=== PATIENT | female | born 1965 | race African-American/Black ===

== ENCOUNTER 2016-10-22 12:24 | Inpatient (IN) | payer OTHER ==
[~2016-10-22] VITALS: Ht 170.2 cm; Wt 100.0 kg
[~2016-10-22 12:24] MED LIST: ACET-66 PO; ALBU17AE27 IH; AMOX500C2 PO; ASPI-556 PO; CARV25 PO; FURO40 PO; GABA-531 PO; IBUP-1547 PO; LISI10TA7 PO; MULT-950 PO; SIMV20TA2 PO; SPIR25TA PO
[2016-10-22 13:42] LABS: BASOPHILS % (AUTO) 0.6 % (0.0-2.0); EOSINOPHILS % (AUTO) 0.1 % (1.0-6.0); HEMATOCRIT 37.9 % (36-46); HEMOGLOBIN 12.2 g/dL (12.0-16.0); LYMPHOCYTES # (AUTO) 1.1 K/uL (1.0-4.8); MEAN CORPUSCULAR HEMOGLOBIN 28.5 pg (26.0-34.0); MEAN CORPUSCULAR HGB CONC 32.2 G/dL (31.0-37.0); MEAN CORPUSCULAR VOLUME 89 fL (80-100); MONOCYTES # (AUTO) 0.7 K/uL (0.1-1.0); MONOCYTES % (AUTO) 18.5 % (2.0-9.0); NEUTROPHILS # (AUTO) 1.8 K/uL (1.8-7.7); NEUTROPHILS % (AUTO) 49.8 % (40.0-70.0); PLATELET COUNT (AUTO) 172 K/uL (150-450); RED BLOOD CELL COUNT(AUTO) 4.27 MIL/uL (4.00-5.20); RED CELL DISTRIBUTION WIDTH 15.4 % (11.5-14.5); WHITE BLOOD COUNT (AUTO) 3.6 K/uL (4.5-11.0)
[2016-10-22 13:56] LABS: ORIG DRAW (USER) PTCARESTAF
[2016-10-22 14:11] LABS: APPEARANCE,URINE CLEAR (CLEAR); GLUCOSE, URINE (UA) NEGATIVE (NEGATIVE); KETONES,URINE NEGATIVE (NEGATIVE); LEUKOCYTE ESTERASE ,URINE NEGATIVE (NEGATIVE); OCCULT BLOOD,URINE NEGATIVE (NEGATIVE); PROTEIN,URINE NEGATIVE (NEGATIVE)
[2016-10-22 14:13] LABS: ADD UA MICROSCOPIC NO
[2016-10-22 14:22] LABS: B-TYPE NATRIURETIC PEPTIDE 550 pg/mL (0-100)
[2016-10-22 14:33] LABS: ABG A-A DIFF O2 32.7 mmHg (10-20.0); ABG BASE EXCESS 11.2 mmol/L (-2.0-3.0); ABG HCO3 31.4 mmol/L (22.0-26.0); ABG OXYHEMOGLOBIN 92.1 % (94.0-100.0); ABG PH 7.222 (7.35-7.450); TEMPERATURE, FAHRENHEIT, BG 98.7 FAHREN (96.0-98.6)
[2016-10-22 14:34] LABS: ABG PCO2 97 mmHg (35-45); ALLEN TEST, BLOOD GAS Positive
[2016-10-22 14:54] LABS: ALANINE AMINOTRANSFERASE 63 U/L (12-78); ALBUMIN 3.3 g/dL (3.4-5.0); ANION GAP 1 mmol/L (8-16); ASPARTATE AMINOTRANSFERASE 48 U/L (15-37); BILIRUBIN,TOTAL 0.2 mg/dL (0.1-1.0); CALCIUM, TOTAL 8.4 mg/dL (8.8-10.5); CARBON DIOXIDE 40 mmol/L (22-29); CHLORIDE 96 mmol/L (98-107); CREATINE KINASE MB 1.2 ng/mL (0-5); CREATINE KINASE, TOTAL 137 U/L (26-192); CREATININE 0.72 mg/dL (0.60-1.30); GLOMERULAR FILTR. RATE CALC > 60 mL/min (>60); SODIUM SERUM 137 mmol/L (136-145); TOTAL PROTEIN, SERUM 7.3 g/dL (6.4-8.2); UREA NITROGEN, BLOOD 7 mg/dL (7-18)
[2016-10-22] MEDS ORDERED: LEVOFLOXACIN 750 MG/D5% WATER 150 ML IV ONE (15:15)
[2016-10-22] MEDS ORDERED: ALBUTEROL SULFATE 5 MG/ML 20 ML NEB SOLN [BULK] NEB ONE (15:15)
[2016-10-22] MEDS ORDERED: MethylPREDNISolone SOD SUCC 125 MG/2 ML VIAL IVP ONE (15:15)
[2016-10-22] MEDS ORDERED: FUROSEMIDE 40 MG/4 ML VIAL IVP ONE (15:15)
[2016-10-22] MEDS ORDERED: IPRATROPIUM BROMIDE 0.5 MG/2.5 ML NEB SOLUTION NEB ONE (15:15)
[2016-10-22] MEDS ORDERED: 0.9% SODIUM CHLORIDE 5 ML NEB SOLUTION NEB ONE (15:21)
[2016-10-22 15:52] LABS: THYROID STIMULATING HORMONE 0.14 uIU/mL (0.36-3.74)
[2016-10-22 16:19] LABS: INFLUENZA TYPE B NEGATIVE FOR TYPE B (NEGATIVE)
[2016-10-22] MEDS ORDERED: OSELTAMIVIR PHOSPHATE 75 MG CAPSULE PO ONE (16:30)
[2016-10-22 16:44] LABS: ABG A-A DIFF O2 35.4 mmHg (10-20.0); ABG BASE EXCESS 12.6 mmol/L (-2.0-3.0); ABG HCO3 33.2 mmol/L (22.0-26.0); ABG OXYHEMOGLOBIN 93.1 % (94.0-100.0); ABG PH 7.287 (7.35-7.450); TEMPERATURE, FAHRENHEIT, BG 98.7 FAHREN (96.0-98.6)
[2016-10-22] MEDS ORDERED: MAGNESIUM HYDROXIDE SUSPENSION 30 ML UDCUP PO PRN (16:45)
[2016-10-22] MEDS ORDERED: OxyCODONE HCL/ACETAMINOPHEN 5-325 MG TABLET PO PRN (16:45)
[2016-10-22] MEDS ORDERED: ACETAMINOPHEN 325 MG TABLET PO PRN (16:45)
[2016-10-22] MEDS ORDERED: DEXTROSE 50%-WATER 25 GM/50 ML SYRINGE IVP PRN ×4 (16:45)
[2016-10-22 16:46] LABS: ABG PCO2 84 mmHg (35-45); IPAP, BG 18 cm H2O
[2016-10-22] MEDS: AZITHROMYCIN 500 MG/NS 250 ML IV SCH (16:55)
[2016-10-22] MEDS: ASPIRIN 81 MG CHEWABLE TABLET PO SCH (16:56)
[2016-10-22] MEDS: MethylPREDNISolone SOD SUCC 125 MG/2 ML VIAL IVP SCH ×2 (17:21→23:17)
[2016-10-22] MEDS: IPRATROPIUM BROMIDE 0.5 MG/2.5 ML NEB SOLUTION NEB SCH ×2 (19:10→22:45)
[2016-10-22] MEDS: ALBUTEROL SULFATE 2.5 MG/0.5 ML NEB SOLUTION NEB SCH ×2 (19:10→22:45)
[2016-10-22] MEDS: OSELTAMIVIR PHOSPHATE 75 MG CAPSULE PO SCH (20:19)
[2016-10-22] MEDS: DOCUSATE SODIUM 100 MG CAPSULE PO SCH (20:19)
[2016-10-22] MEDS: HEPARIN SODIUM,PORCINE 5,000 UNITS/ML VIAL SQ SCH (23:19)
[2016-10-23 00:32] LABS: GLUCOSE,POINT OF CARE 226 MG/DL (70-110)
[2016-10-23] MEDS: INSULIN ASPART 100 UNITS/ML SQ PRN ×3 (00:33→13:14)
[2016-10-23] MEDS: IPRATROPIUM BROMIDE 0.5 MG/2.5 ML NEB SOLUTION NEB SCH ×6 (02:46→22:54)
[2016-10-23] MEDS: ALBUTEROL SULFATE 2.5 MG/0.5 ML NEB SOLUTION NEB SCH ×6 (02:46→22:54)
[2016-10-23] MEDS: MethylPREDNISolone SOD SUCC 125 MG/2 ML VIAL IVP SCH ×3 (05:42→18:33)
[2016-10-23 07:01] LABS: GLUCOSE,POINT OF CARE 141 MG/DL (70-110)
[2016-10-23 07:47] LABS: EOSINOPHILS % (AUTO) 0 % (1.0-6.0); HEMATOCRIT 40.3 % (36-46); HEMOGLOBIN 12.9 g/dL (12.0-16.0); LYMPHOCYTES # (AUTO) 0.7 K/uL (1.0-4.8); LYMPHOCYTES % (AUTO) 10.6 % (22.0-44.0); MEAN CORPUSCULAR HEMOGLOBIN 28.8 pg (26.0-34.0); MEAN CORPUSCULAR VOLUME 90 fL (80-100); MONOCYTES # (AUTO) 0.3 K/uL (0.1-1.0); NEUTROPHILS # (AUTO) 5.7 K/uL (1.8-7.7); PLATELET COUNT (AUTO) 184 K/uL (150-450); RED BLOOD CELL COUNT(AUTO) 4.46 MIL/uL (4.00-5.20); RED CELL DISTRIBUTION WIDTH 14.9 % (11.5-14.5); WHITE BLOOD COUNT (AUTO) 6.7 K/uL (4.5-11.0)
[2016-10-23 07:55] LABS: NEUTROPHILS % (AUTO) 85.4 % (40.0-70.0)
[2016-10-23 08:03] LABS: ALANINE AMINOTRANSFERASE 56 U/L (12-78); ALBUMIN 2.9 g/dL (3.4-5.0); ANION GAP 2 mmol/L (8-16); ASPARTATE AMINOTRANSFERASE 29 U/L (15-37); BILIRUBIN,TOTAL 0.1 mg/dL (0.1-1.0); CALCIUM, TOTAL 8.6 mg/dL (8.8-10.5); CARBON DIOXIDE 40 mmol/L (22-29); CHLORIDE 97 mmol/L (98-107); CREATININE 0.63 mg/dL (0.60-1.30); GLOMERULAR FILTR. RATE CALC > 60 mL/min (>60); POTASSIUM 4.4 mmol/L (3.5-5.1); SODIUM SERUM 139 mmol/L (136-145); TOTAL PROTEIN, SERUM 7.1 g/dL (6.4-8.2); UREA NITROGEN, BLOOD 8 mg/dL (7-18)
[2016-10-23] MEDS: HEPARIN SODIUM,PORCINE 5,000 UNITS/ML VIAL SQ SCH ×2 (08:10→17:54)
[2016-10-23 08:36] LABS: RBC MORPHOLOGY COMMENT NORMAL RBC MORPH
[2016-10-23 08:49] LABS: ABG A-A DIFF O2 412.8 mmHg (10-20.0); ABG BASE EXCESS 15.5 mmol/L (-2.0-3.0); ABG HCO3 35.6 mmol/L (22.0-26.0); ABG OXYHEMOGLOBIN 93.5 % (94.0-100.0); ABG PH 7.322 (7.35-7.450); TEMPERATURE, FAHRENHEIT, BG 97.5 FAHREN (96.0-98.6)
[2016-10-23 08:52] LABS: ABG PCO2 82 mmHg (35-45); ALLEN TEST, BLOOD GAS Positive
[2016-10-23] MEDS: DOCUSATE SODIUM 100 MG CAPSULE PO SCH ×2 (09:14→22:33)
[2016-10-23] MEDS: ASPIRIN 81 MG CHEWABLE TABLET PO SCH (09:15)
[2016-10-23] MEDS: PANTOPRAZOLE SODIUM 40 MG DR TABLET PO SCH (09:15)
[2016-10-23] MEDS: OSELTAMIVIR PHOSPHATE 75 MG CAPSULE PO SCH ×2 (09:15→22:33)
[2016-10-23 12:56] LABS: GLUCOSE,POINT OF CARE 246 MG/DL (70-110)
[2016-10-23] MEDS: AZITHROMYCIN 500 MG/NS 250 ML IV SCH (17:55)
[2016-10-23 20:07] LABS: ABG A-A DIFF O2 216.2 mmHg (10-20.0); ABG HCO3 33.9 mmol/L (22.0-26.0); ABG OXYHEMOGLOBIN 92.3 % (94.0-100.0); ABG PCO2 67 mmHg (35-45); ABG PH 7.375 (7.35-7.450); IPAP, BG 18 cm H2O; TEMPERATURE, FAHRENHEIT, BG 97.8 FAHREN (96.0-98.6)
[2016-10-23] MEDS: BUDESONIDE 0.5 MG/2 ML NEB SOLUTION NEB SCH (20:20)
[2016-10-23 20:46] LABS: GLUCOSE,POINT OF CARE 207 MG/DL (70-110)
[2016-10-23 21:29] VITALS: BP 121/65
[2016-10-24] VITALS (7 sets, daily range): BP systolic 120–162; BP diastolic 69–94
[2016-10-24] MEDS: HEPARIN SODIUM,PORCINE 5,000 UNITS/ML VIAL SQ SCH ×3 (00:08→17:16)
[2016-10-24] MEDS: MethylPREDNISolone SOD SUCC 125 MG/2 ML VIAL IVP SCH ×4 (00:08→17:16)
[2016-10-24] MEDS: ALBUTEROL SULFATE 2.5 MG/0.5 ML NEB SOLUTION NEB SCH ×6 (02:45→22:39)
[2016-10-24] MEDS: IPRATROPIUM BROMIDE 0.5 MG/2.5 ML NEB SOLUTION NEB SCH ×6 (02:45→22:39)
[2016-10-24] MEDS: INSULIN ASPART 100 UNITS/ML SQ PRN ×4 (06:06→21:35)
[2016-10-24 07:14] LABS: EOSINOPHILS % (AUTO) 0 % (1.0-6.0); HEMATOCRIT 40.7 % (36-46); HEMOGLOBIN 12.8 g/dL (12.0-16.0); LYMPHOCYTES % (AUTO) 7.1 % (22.0-44.0); MEAN CORPUSCULAR HEMOGLOBIN 28.2 pg (26.0-34.0); MEAN CORPUSCULAR HGB CONC 31.3 G/dL (31.0-37.0); MEAN CORPUSCULAR VOLUME 90 fL (80-100); MONOCYTES # (AUTO) 0.8 K/uL (0.1-1.0); MONOCYTES % (AUTO) 5.3 % (2.0-9.0); NEUTROPHILS # (AUTO) 12.7 K/uL (1.8-7.7); PLATELET COUNT (AUTO) 218 K/uL (150-450); RED BLOOD CELL COUNT(AUTO) 4.51 MIL/uL (4.00-5.20); RED CELL DISTRIBUTION WIDTH 15.4 % (11.5-14.5); WHITE BLOOD COUNT (AUTO) 14.5 K/uL (4.5-11.0)
[2016-10-24] MEDS: BUDESONIDE 0.5 MG/2 ML NEB SOLUTION NEB SCH ×2 (07:15→19:23)
[2016-10-24 07:16] LABS: NEUTROPHILS % (AUTO) 87.6 % (40.0-70.0)
[2016-10-24 07:17] LABS: RBC MORPHOLOGY COMMENT NORMAL RBC MORPH
[2016-10-24 07:35] LABS: B-TYPE NATRIURETIC PEPTIDE 307 pg/mL (0-100)
[2016-10-24 07:37] LABS: ALANINE AMINOTRANSFERASE 44 U/L (12-78); ALBUMIN 2.7 g/dL (3.4-5.0); ANION GAP 2 mmol/L (8-16); ASPARTATE AMINOTRANSFERASE 20 U/L (15-37); BILIRUBIN,TOTAL 0.1 mg/dL (0.1-1.0); CALCIUM, TOTAL 8.7 mg/dL (8.8-10.5); CARBON DIOXIDE 38 mmol/L (22-29); CHLORIDE 99 mmol/L (98-107); CREATININE 0.66 mg/dL (0.60-1.30); GLOMERULAR FILTR. RATE CALC > 60 mL/min (>60); PHOSPHORUS 1.9 mg/dL (2.5-4.9); POTASSIUM 4.4 mmol/L (3.5-5.1); SODIUM SERUM 139 mmol/L (136-145); TOTAL PROTEIN, SERUM 6.8 g/dL (6.4-8.2); UREA NITROGEN, BLOOD 14 mg/dL (7-18)
[2016-10-24] MEDS: ASPIRIN 81 MG CHEWABLE TABLET PO SCH (09:07)
[2016-10-24] MEDS: OSELTAMIVIR PHOSPHATE 75 MG CAPSULE PO SCH ×2 (09:07→21:27)
[2016-10-24] MEDS: PANTOPRAZOLE SODIUM 40 MG DR TABLET PO SCH (09:07)
[2016-10-24] MEDS: DOCUSATE SODIUM 100 MG CAPSULE PO SCH ×2 (09:07→21:00)
[2016-10-24 11:12] LABS: ABG A-A DIFF O2 106.8 mmHg (10-20.0); ABG BASE EXCESS 13.1 mmol/L (-2.0-3.0); ABG PCO2 62 mmHg (35-45); ABG PH 7.405 (7.35-7.450); ALLEN TEST, BLOOD GAS Positive; TEMPERATURE, FAHRENHEIT, BG 97.8 FAHREN (96.0-98.6)
[2016-10-24 13:56] LABS: GLUCOSE COMMENT 1 Received Meds; GLUCOSE,POINT OF CARE 293 MG/DL (70-110)
[2016-10-24] MEDS ORDERED: SODIUM CHLORIDE 0.9% 500 ML IV ONE (17:07)
[2016-10-24] MEDS: AZITHROMYCIN 500 MG/NS 250 ML IV SCH (17:16)
[2016-10-25] MEDS: HEPARIN SODIUM,PORCINE 5,000 UNITS/ML VIAL SQ SCH ×2 (00:26→09:06)
[2016-10-25] MEDS: MethylPREDNISolone SOD SUCC 125 MG/2 ML VIAL IVP SCH ×2 (00:26→05:55)
[2016-10-25 04:49] VITALS: BP_SYST 145; BP_SYST 151; BP_DIAS 106; BP_DIAS 93
[2016-10-25] MEDS: IPRATROPIUM BROMIDE 0.5 MG/2.5 ML NEB SOLUTION NEB SCH ×4 (05:05→15:00)
[2016-10-25] MEDS: ALBUTEROL SULFATE 2.5 MG/0.5 ML NEB SOLUTION NEB SCH ×4 (05:06→15:00)
[2016-10-25] MEDS: INSULIN ASPART 100 UNITS/ML SQ PRN ×2 (05:56→12:34)
[2016-10-25 07:24] VITALS: BP 157/99
[2016-10-25] MEDS ORDERED: LISINOPRIL 10 MG TABLET PO SCH (09:00)
[2016-10-25] MEDS: DOCUSATE SODIUM 100 MG CAPSULE PO SCH (09:00)
[2016-10-25] MEDS ORDERED: FUROSEMIDE 40 MG TABLET PO SCH (09:00)
[2016-10-25] MEDS: ASPIRIN 81 MG CHEWABLE TABLET PO SCH (09:05)
[2016-10-25] MEDS: PANTOPRAZOLE SODIUM 40 MG DR TABLET PO SCH (09:05)
[2016-10-25] MEDS: OSELTAMIVIR PHOSPHATE 75 MG CAPSULE PO SCH (09:06)
[2016-10-25] MEDS: BUDESONIDE 0.5 MG/2 ML NEB SOLUTION NEB SCH (09:19)
[2016-10-25] MEDS ORDERED: PredniSONE 10 MG TABLET PO SCH (11:30)
[2016-10-25] MEDS ORDERED: PRED20 PO (11:52)
[2016-10-25] MEDS ORDERED: OSEL75 PO (11:56)
[2016-10-25 11:59] VITALS: BP 157/91
[2016-10-25 20:42] LABS: GLUCOSE COMMENT 1 Received Meds; GLUCOSE,POINT OF CARE 188 MG/DL (70-110)
[2016-10-25 20:43] LABS: GLUCOSE COMMENT 1 Received Meds; GLUCOSE,POINT OF CARE 167 MG/DL (70-110)
[2016-10-25 20:43] LABS: GLUCOSE COMMENT 1 Received Meds; GLUCOSE,POINT OF CARE 313 MG/DL (70-110)
[2016-10-26 20:11] LABS: GLUCOSE COMMENT 1 Received Meds; GLUCOSE,POINT OF CARE 181 MG/DL (70-110)
[2016-10-26 20:11] LABS: GLUCOSE,POINT OF CARE 223 MG/DL (70-110)
== END 2016-10-25 16:53 | disposition home or self-care (01) | DRG 140 ==
LOC: EMS 12:26 → ICU 10-23 18:57 → 5N 10-23 21:19
PROVIDERS: ADMIT Internal Medicine; ATTEND Internal Medicine
PROC: 5A09457 Assistance with Respiratory Ventilation, 24-96 Consecutive Hours, Continuous Positive Airway Pressure (ICD-10-PCS; principal; 2016-10-23)
DX: J44.1 Chronic obstructive pulmonary disease with (acute) exacerbation (principal); J96.01 Acute respiratory failure with hypoxia; I50.43 Acute on chronic combined systolic (congestive) and diastolic (congestive) heart failure; J96.02 Acute respiratory failure with hypercapnia; E44.0 Moderate protein-calorie malnutrition; I11.0 Hypertensive heart disease with heart failure; J09.X2 Influenza due to identified novel influenza A virus with other respiratory manifestations; E66.2 Morbid (severe) obesity with alveolar hypoventilation; I42.8 Other cardiomyopathies; Z99.81 Dependence on supplemental oxygen; F15.10 Other stimulant abuse, uncomplicated; F17.210 Nicotine dependence, cigarettes, uncomplicated; J45.909 Unspecified asthma, uncomplicated; E11.9 Type 2 diabetes mellitus without complications; Z79.899 Other long term (current) drug therapy; Z79.82 Long term (current) use of aspirin; Z91.19 Patient's noncompliance with other medical treatment and regimen; Z95.810 Presence of automatic (implantable) cardiac defibrillator; Z98.51 Tubal ligation status; Z71.51 Drug abuse counseling and surveillance of drug abuser; Z72.89 Other problems related to lifestyle; Z68.34 Body mass index [BMI] 34.0-34.9, adult
CPT/HCPCS: 82805; 82962; 83735; 84100; 84443; 87040; 87804; 93005; 93306; 94640; 94644; 94660; 96365; 96375; 99291; J0456; J1644; J1815; J1940; J1956; J2930; J7040

== ENCOUNTER 2017-11-07 23:28 | Inpatient (IN) | payer OTHER ==
[~2017-11-07] VITALS: Ht 170.2 cm; Wt 97.8 kg
[~2017-11-07 23:28] MED LIST changes: -AMOX500C2 PO; -IBUP-1547 PO; +OSEL75 PO; +PRED20 PO
[2017-11-08] MEDS ORDERED: ASPIRIN 81 MG CHEWABLE TABLET PO ONE
[2017-11-08] MEDS ORDERED: IBUPROFEN 800 MG TABLET PO ONE
[2017-11-08 00:15] LABS: BASOPHILS % (AUTO) 0.8 % (0.0-2.0); EOSINOPHILS % (AUTO) 1.9 % (1.0-6.0); HEMATOCRIT 37.7 % (36-46); HEMOGLOBIN 12.5 g/dL (12.0-16.0); LYMPHOCYTES # (AUTO) 2.2 K/uL (1.0-4.8); LYMPHOCYTES % (AUTO) 32.5 % (22.0-44.0); MEAN CORPUSCULAR HEMOGLOBIN 29.8 pg (26.0-34.0); MEAN CORPUSCULAR HGB CONC 33.2 G/dL (31.0-37.0); MEAN CORPUSCULAR VOLUME 90 fL (80-100); MONOCYTES # (AUTO) 0.6 K/uL (0.1-1.0); MONOCYTES % (AUTO) 8.5 % (2.0-9.0); NEUTROPHILS # (AUTO) 3.9 K/uL (1.8-7.7); NEUTROPHILS % (AUTO) 56.3 % (40.0-70.0); PLATELET COUNT (AUTO) 220 K/uL (150-450); RED CELL DISTRIBUTION WIDTH 15.2 % (11.5-14.5)
[2017-11-08 00:25] LABS: ANION GAP 5 mmol/L (8-16); CARBON DIOXIDE 33 mmol/L (22-29); CHLORIDE 104 mmol/L (98-107); CREATININE 0.64 mg/dL (0.60-1.30); GLOMERULAR FILTR. RATE CALC > 60 mL/min (>60); GLUCOSE,RANDOM 97 mg/dL (70-110); POTASSIUM 3.9 mmol/L (3.5-5.1); SODIUM SERUM 142 mmol/L (136-145); UREA NITROGEN, BLOOD 12 mg/dL (7-18)
[2017-11-08 00:50] LABS: ALANINE AMINOTRANSFERASE 39 U/L (12-78); ALBUMIN 3.1 g/dL (3.4-5.0); ALKALINE PHOSPHATASE 54 U/L (46-116); ASPARTATE AMINOTRANSFERASE 25 U/L (15-37); BILIRUBIN,TOTAL 0.4 mg/dL (0.1-1.0); CREATINE KINASE MB 2.5 ng/mL (0-5); CREATINE KINASE, TOTAL 86 U/L (26-192); TOTAL PROTEIN, SERUM 7.1 g/dL (6.4-8.2)
[2017-11-08 00:51] LABS: B-TYPE NATRIURETIC PEPTIDE 1080 pg/mL (0-100)
[2017-11-08] MEDS ORDERED: ACETAMINOPHEN 325 MG TABLET PO PRN (01:30)
[2017-11-08] MEDS ORDERED: ONDANSETRON HCL 4 MG/2 ML VIAL IVP PRN (01:30)
[2017-11-08] MEDS ORDERED: 0.9% SODIUM CHLORIDE 10 ML SYRINGE IVP PRN (01:30)
[2017-11-08 02:11] VITALS: BP 158/101
[2017-11-08] MEDS ORDERED: PNEUMOCOCCAL VACCINE POLYVALENT 0.5 ML VIAL [PPSV23] IM ONE (02:30)
[2017-11-08 07:47] VITALS: BP 140/99
[2017-11-08] MEDS: HEPARIN SODIUM,PORCINE 5,000 UNITS/ML VIAL SQ SCH ×3 (08:30→23:33)
[2017-11-08] MEDS ORDERED: ACETAMINOPHEN 500 MG TABLET PO PRN (08:30)
[2017-11-08] MEDS ORDERED: ALBUTEROL SULFATE HFA 90 MCG/PUFF 8 GM INHALER IH PRN (08:45)
[2017-11-08] MEDS ORDERED: FUROSEMIDE 40 MG TABLET PO SCH (09:00)
[2017-11-08] MEDS ORDERED: METOPROLOL SUCCINATE 25 MG ER TABLET PO SCH (09:00)
[2017-11-08] MEDS: ASPIRIN 81 MG EC TABLET PO SCH (09:15)
[2017-11-08] MEDS: MULTIVITAMINS, THERAPEUTIC TABLET PO SCH (09:15)
[2017-11-08] MEDS: GABAPENTIN 300 MG CAPSULE PO SCH ×3 (09:16→20:35)
[2017-11-08] MEDS: PANTOPRAZOLE SODIUM 40 MG/VIAL IVP SCH (09:16)
[2017-11-08] MEDS: LISINOPRIL 10 MG TABLET PO SCH (09:17)
[2017-11-08] MEDS: SPIRONOLACTONE 25 MG TABLET PO SCH (09:17)
[2017-11-08 09:27] LABS: AMPHET/METH SCREEN,URINE NEGATIVE (NEGATIVE); BARBITURATE SCREEN, URINE NEGATIVE (NEGATIVE); BENZODIAZEPINES SCREEN,URINE NEGATIVE (NEGATIVE); CANNABINOID SCREEN,URINE NEGATIVE (NEGATIVE); COCAINE SCREEN,URINE NEGATIVE (NEGATIVE); METHADONE SCREEN, URINE NEGATIVE (NEGATIVE); OPIATE SCREEN,URINE NEGATIVE (NEGATIVE)
[2017-11-08 09:30] LABS: PHENCYCLIDINE SCREEN,URINE NEGATIVE (NEGATIVE)
[2017-11-08 09:32] LABS: CREATINE KINASE MB 2.7 ng/mL (0-5); CREATINE KINASE, TOTAL 78 U/L (26-192)
[2017-11-08 09:34] LABS: APPEARANCE,URINE CLEAR (CLEAR); GLUCOSE, URINE (UA) NEGATIVE (NEGATIVE); KETONES,URINE NEGATIVE (NEGATIVE); LEUKOCYTE ESTERASE ,URINE NEGATIVE (NEGATIVE); NITRATE,URINE NEGATIVE (NEGATIVE); OCCULT BLOOD,URINE NEGATIVE (NEGATIVE); PROTEIN,URINE TRACE (NEGATIVE)
[2017-11-08 09:35] LABS: BILIRUBIN,URINE PRELIM. POSITIVE (NEGATIVE)
[2017-11-08 09:49] LABS: BACTERIA,URINE None Seen /HPF (None Seen); CALCIUM OXALATE CRYSTALS,UR Many /LPF (None Seen); RBC,URINE None Seen /HPF (0-2); SQUAMOUS EPITHELIAL CELL,UR Few /LPF (None Seen); WBC,URINE None Seen /HPF (0-5)
[2017-11-08 11:28] VITALS: BP 144/83
[2017-11-08] MEDS: ALBUTEROL SULFATE 2.5 MG/0.5 ML NEB SOLUTION NEB SCH ×3 (15:00→23:26)
[2017-11-08] MEDS: BUDESONIDE 0.5 MG/2 ML NEB SOLUTION NEB SCH ×2 (15:00→20:02)
[2017-11-08] MEDS: IPRATROPIUM BROMIDE 0.5 MG/2.5 ML NEB SOLUTION NEB SCH ×3 (15:00→23:26)
[2017-11-08 15:11] VITALS: BP 139/81
[2017-11-08 16:15] LABS: CREATINE KINASE MB 2.8 ng/mL (0-5); CREATINE KINASE, TOTAL 103 U/L (26-192)
[2017-11-08 19:35] VITALS: BP 112/63
[2017-11-08] MEDS: FUROSEMIDE 40 MG TABLET PO SCH (20:35)
[2017-11-08] MEDS: CARVEDILOL 25 MG TABLET PO SCH (20:35)
[2017-11-08] MEDS ORDERED: SIMVASTATIN 20 MG TABLET PO SCH (21:00)
[2017-11-08 21:46] LABS: CREATINE KINASE MB 2.3 ng/mL (0-5); CREATINE KINASE, TOTAL 76 U/L (26-192)
[2017-11-08 23:50] VITALS: BP 113/77
[2017-11-09] MEDS: IPRATROPIUM BROMIDE 0.5 MG/2.5 ML NEB SOLUTION NEB SCH ×4 (02:38→14:48)
[2017-11-09] MEDS: ALBUTEROL SULFATE 2.5 MG/0.5 ML NEB SOLUTION NEB SCH ×4 (02:38→14:47)
[2017-11-09 04:43] VITALS: BP 121/64
[2017-11-09 06:12] LABS: BASOPHILS % (AUTO) 0.8 % (0.0-2.0); EOSINOPHILS % (AUTO) 1.9 % (1.0-6.0); HEMATOCRIT 35.3 % (36-46); HEMOGLOBIN 11.9 g/dL (12.0-16.0); LYMPHOCYTES # (AUTO) 1.3 K/uL (1.0-4.8); LYMPHOCYTES % (AUTO) 22.5 % (22.0-44.0); MEAN CORPUSCULAR HEMOGLOBIN 30.2 pg (26.0-34.0); MEAN CORPUSCULAR HGB CONC 33.7 G/dL (31.0-37.0); MEAN CORPUSCULAR VOLUME 90 fL (80-100); MONOCYTES # (AUTO) 0.6 K/uL (0.1-1.0); MONOCYTES % (AUTO) 10.3 % (2.0-9.0); NEUTROPHILS # (AUTO) 3.7 K/uL (1.8-7.7); NEUTROPHILS % (AUTO) 64.5 % (40.0-70.0); PLATELET COUNT (AUTO) 203 K/uL (150-450); RED BLOOD CELL COUNT(AUTO) 3.94 MIL/uL (4.00-5.20); RED CELL DISTRIBUTION WIDTH 15.3 % (11.5-14.5)
[2017-11-09 06:44] LABS: ANION GAP 2 mmol/L (8-16); CALCIUM, TOTAL 9.2 mg/dL (8.8-10.5); CARBON DIOXIDE 37 mmol/L (22-29); CHLORIDE 101 mmol/L (98-107); CREATININE 0.73 mg/dL (0.60-1.30); GLOMERULAR FILTR. RATE CALC > 60 mL/min (>60); GLUCOSE,RANDOM 105 mg/dL (70-110); POTASSIUM 4.1 mmol/L (3.5-5.1); SODIUM SERUM 140 mmol/L (136-145); UREA NITROGEN, BLOOD 10 mg/dL (7-18)
[2017-11-09 07:23] VITALS: BP 120/74
[2017-11-09] MEDS: BUDESONIDE 0.5 MG/2 ML NEB SOLUTION NEB SCH (07:46)
[2017-11-09] MEDS: HEPARIN SODIUM,PORCINE 5,000 UNITS/ML VIAL SQ SCH (08:00)
[2017-11-09] MEDS: CARVEDILOL 25 MG TABLET PO SCH (09:00)
[2017-11-09] MEDS: FUROSEMIDE 40 MG TABLET PO SCH (09:00)
[2017-11-09] MEDS: SPIRONOLACTONE 25 MG TABLET PO SCH (09:06)
[2017-11-09] MEDS: LISINOPRIL 10 MG TABLET PO SCH (09:06)
[2017-11-09] MEDS: MULTIVITAMINS, THERAPEUTIC TABLET PO SCH (09:06)
[2017-11-09] MEDS: ASPIRIN 81 MG EC TABLET PO SCH (09:06)
[2017-11-09] MEDS: GABAPENTIN 300 MG CAPSULE PO SCH (09:06)
[2017-11-09] MEDS: PANTOPRAZOLE SODIUM 40 MG/VIAL IVP SCH (09:07)
[2017-11-09] MEDS ORDERED: MAGNESIUM SULFATE 2 GM in DEXTROSE 5%-WATER 50 ML IV ONE (09:15)
[2017-11-09 12:00] VITALS: BP 134/61
== END 2017-11-09 15:20 | disposition home or self-care (01) | DRG 198 ==
LOC: EMS 23:29 → 5N 11-08 01:00
PROVIDERS: ADMIT Internal Medicine; ATTEND Internal Medicine
PROC: 3E0234Z Introduction of Serum, Toxoid and Vaccine into Muscle, Percutaneous Approach (ICD-10-PCS; principal; 2017-11-08)
DX: R07.89 Other chest pain (principal); I25.10 Atherosclerotic heart disease of native coronary artery without angina pectoris; I11.0 Hypertensive heart disease with heart failure; I42.0 Dilated cardiomyopathy; I50.9 Heart failure, unspecified; E78.5 Hyperlipidemia, unspecified; F17.200 Nicotine dependence, unspecified, uncomplicated; G47.33 Obstructive sleep apnea (adult) (pediatric); I42.7 Cardiomyopathy due to drug and external agent; J98.11 Atelectasis; J44.9 Chronic obstructive pulmonary disease, unspecified; Z91.19 Patient's noncompliance with other medical treatment and regimen; Z95.0 Presence of cardiac pacemaker; Z79.82 Long term (current) use of aspirin; Z23 Encounter for immunization; Z98.51 Tubal ligation status; T43.625A Adverse effect of amphetamines, initial encounter; Y92.89 Other specified places as the place of occurrence of the external cause
CPT/HCPCS: 80074; 83735; 84460; 90471; 93005; 93306; 94640; 99285; C9113; J1644; J3475; J7060

== ENCOUNTER 2017-12-20 12:29 | Inpatient (IN) | payer OTHER ==
[~2017-12-20] VITALS: Ht 170.2 cm; Wt 99.1 kg
[~2017-12-20 12:29] MED LIST changes: -OSEL75 PO; -PRED20 PO
[2017-12-20] MEDS ORDERED: ALBUTEROL SULFATE 5 MG/ML 20 ML NEB SOLN [BULK] NEB ONE (13:45)
[2017-12-20] MEDS ORDERED: IPRATROPIUM BROMIDE 0.5 MG/2.5 ML NEB SOLUTION NEB ONE (13:45)
[2017-12-20] MEDS ORDERED: 0.9% SODIUM CHLORIDE 5 ML NEB SOLUTION NEB ONE (13:46)
[2017-12-20] MEDS ORDERED: MethylPREDNISolone SOD SUCC 125 MG/2 ML VIAL IVP ONE (14:15)
[2017-12-20 14:22] LABS: BASOPHILS % (AUTO) 0.7 % (0.0-2.0); EOSINOPHILS % (AUTO) 0.4 % (1.0-6.0); HEMATOCRIT 39.3 % (36-46); HEMOGLOBIN 12.8 g/dL (12.0-16.0); LYMPHOCYTES # (AUTO) 1.5 K/uL (1.0-4.8); LYMPHOCYTES % (AUTO) 16.8 % (22.0-44.0); MEAN CORPUSCULAR HEMOGLOBIN 29.6 pg (26.0-34.0); MEAN CORPUSCULAR HGB CONC 32.7 G/dL (31.0-37.0); MEAN CORPUSCULAR VOLUME 90 fL (80-100); MONOCYTES # (AUTO) 0.6 K/uL (0.1-1.0); NEUTROPHILS # (AUTO) 6.8 K/uL (1.8-7.7); NEUTROPHILS % (AUTO) 75.1 % (40.0-70.0); PLATELET COUNT (AUTO) 288 K/uL (150-450); RED BLOOD CELL COUNT(AUTO) 4.34 MIL/uL (4.00-5.20); RED CELL DISTRIBUTION WIDTH 15.8 % (11.5-14.5)
[2017-12-20 14:32] LABS: ANION GAP 5 mmol/L (8-16); CALCIUM, TOTAL 9.5 mg/dL (8.8-10.5); CARBON DIOXIDE 34 mmol/L (22-29); CHLORIDE 101 mmol/L (98-107); CREATININE 0.64 mg/dL (0.60-1.30); GLOMERULAR FILTR. RATE CALC > 60 mL/min (>60); GLUCOSE,RANDOM 118 mg/dL (70-110); POTASSIUM 4.9 mmol/L (3.5-5.1); SODIUM SERUM 140 mmol/L (136-145); UREA NITROGEN, BLOOD 10 mg/dL (7-18)
[2017-12-20 14:38] LABS: ALANINE AMINOTRANSFERASE 47 U/L (12-78); ALBUMIN 3.3 g/dL (3.4-5.0); ALKALINE PHOSPHATASE 61 U/L (46-116); ASPARTATE AMINOTRANSFERASE 40 U/L (15-37); BILIRUBIN,TOTAL 0.5 mg/dL (0.1-1.0)
[2017-12-20 14:41] LABS: B-TYPE NATRIURETIC PEPTIDE 1830 pg/mL (0-100)
[2017-12-20] MEDS ORDERED: ASPIRIN 325 MG TABLET PO ONE (15:15)
[2017-12-20] MEDS ORDERED: 0.9% SODIUM CHLORIDE 10 ML SYRINGE IVP PRN (15:15)
[2017-12-20] MEDS ORDERED: FUROSEMIDE 40 MG/4 ML VIAL IVP ONE (15:15)
[2017-12-20] MEDS ORDERED: ONDANSETRON HCL 4 MG/2 ML VIAL IVP PRN ×2 (15:15→19:30)
[2017-12-20] MEDS ORDERED: ACETAMINOPHEN 325 MG TABLET PO PRN ×2 (15:15→19:30)
[2017-12-20 17:02] VITALS: BP 141/91
[2017-12-20] MEDS ORDERED: IPRATROPIUM BROMIDE 0.5 MG/2.5 ML NEB SOLUTION NEB PRN ×2 (19:15→19:30)
[2017-12-20] MEDS ORDERED: ALBUTEROL SULFATE 2.5 MG/0.5 ML NEB SOLUTION NEB PRN ×2 (19:15→19:30)
[2017-12-20 19:30] VITALS: BP 158/93
[2017-12-20] MEDS ORDERED: MORPHINE SULFATE 4 MG/ML SYRINGE IVP PRN (19:30)
[2017-12-20] MEDS ORDERED: ZOLPIDEM TARTRATE 5 MG TABLET PO PRN (19:30)
[2017-12-20] MEDS ORDERED: ALBUTEROL SULFATE HFA 90 MCG/PUFF 8 GM INHALER IH SCH (19:30)
[2017-12-20] MEDS ORDERED: MAGNESIUM HYDROXIDE SUSPENSION 30 ML UDCUP PO PRN (19:30)
[2017-12-20] MEDS ORDERED: BISACODYL 10 MG RECTAL RECTAL SUPPOSITORY PR PRN (19:30)
[2017-12-20] MEDS: FUROSEMIDE 40 MG/4 ML VIAL IVP SCH (21:06)
[2017-12-20] MEDS: GuaiFENesin SR 600 MG ER TABLET PO SCH (21:08)
[2017-12-20] MEDS: CARVEDILOL 25 MG TABLET PO SCH (21:08)
[2017-12-20] MEDS: SIMVASTATIN 20 MG TABLET PO SCH (21:08)
[2017-12-20] MEDS: GABAPENTIN 300 MG CAPSULE PO SCH (21:08)
[2017-12-20] MEDS: DOCUSATE SODIUM 100 MG CAPSULE PO SCH (21:08)
[2017-12-20] MEDS: BENZONATATE 100 MG CAPSULE PO SCH (21:08)
[2017-12-20] MEDS: ALBUTEROL SULFATE 2.5 MG/0.5 ML NEB SOLUTION NEB SCH (21:37)
[2017-12-20] MEDS: IPRATROPIUM BROMIDE 0.5 MG/2.5 ML NEB SOLUTION NEB SCH (21:37)
[2017-12-20 23:33] VITALS: BP 146/92
[2017-12-21] MEDS: MethylPREDNISolone SOD SUCC 125 MG/2 ML VIAL IVP SCH ×4 (00:04→18:50)
[2017-12-21] MEDS: HEPARIN SODIUM,PORCINE 5,000 UNITS/ML VIAL SQ SCH ×3 (00:05→16:03)
[2017-12-21] MEDS: ALBUTEROL SULFATE 2.5 MG/0.5 ML NEB SOLUTION NEB SCH ×4 (01:07→19:44)
[2017-12-21] MEDS: IPRATROPIUM BROMIDE 0.5 MG/2.5 ML NEB SOLUTION NEB SCH ×4 (01:07→19:44)
[2017-12-21 04:14] VITALS: BP 132/77
[2017-12-21 06:11] LABS: HEMATOCRIT 39.8 % (36-46); HEMOGLOBIN 13.1 g/dL (12.0-16.0); MEAN CORPUSCULAR HEMOGLOBIN 29.6 pg (26.0-34.0); MEAN CORPUSCULAR HGB CONC 32.9 G/dL (31.0-37.0); MEAN CORPUSCULAR VOLUME 90 fL (80-100); PLATELET COUNT (AUTO) 318 K/uL (150-450); RED BLOOD CELL COUNT(AUTO) 4.43 MIL/uL (4.00-5.20); RED CELL DISTRIBUTION WIDTH 15.6 % (11.5-14.5)
[2017-12-21 06:35] LABS: ANION GAP 5 mmol/L (8-16); CALCIUM, TOTAL 9.7 mg/dL (8.8-10.5); CARBON DIOXIDE 37 mmol/L (22-29); CHLORIDE 98 mmol/L (98-107); CREATININE 0.69 mg/dL (0.60-1.30); GLOMERULAR FILTR. RATE CALC > 60 mL/min (>60); GLUCOSE,RANDOM 142 mg/dL (70-110); POTASSIUM 4.7 mmol/L (3.5-5.1); SODIUM SERUM 140 mmol/L (136-145); UREA NITROGEN, BLOOD 14 mg/dL (7-18)
[2017-12-21 07:35] VITALS: BP 134/67
[2017-12-21 07:50] LABS: BAND NEUTROPHILS % (MANUAL) 9 % (0-5); LYMPHOCYTES % (MANUAL) 6 % (22-44); SEGMENTED NEUTROPHILS % 85 % (40-70)
[2017-12-21] MEDS: LISINOPRIL 10 MG TABLET PO SCH (08:38)
[2017-12-21] MEDS: GABAPENTIN 300 MG CAPSULE PO SCH ×3 (08:38→21:14)
[2017-12-21] MEDS: PANTOPRAZOLE SODIUM 40 MG DR TABLET PO SCH (08:38)
[2017-12-21] MEDS: DOCUSATE SODIUM 100 MG CAPSULE PO SCH ×2 (08:38→21:14)
[2017-12-21] MEDS: FUROSEMIDE 40 MG/4 ML VIAL IVP SCH ×2 (08:38→21:15)
[2017-12-21] MEDS: SPIRONOLACTONE 25 MG TABLET PO SCH (08:38)
[2017-12-21] MEDS: GuaiFENesin SR 600 MG ER TABLET PO SCH ×2 (08:38→21:14)
[2017-12-21] MEDS: MULTIVITAMINS, THERAPEUTIC TABLET PO SCH (08:39)
[2017-12-21] MEDS: BENZONATATE 100 MG CAPSULE PO SCH ×3 (08:39→21:14)
[2017-12-21] MEDS: CARVEDILOL 25 MG TABLET PO SCH ×2 (08:39→21:14)
[2017-12-21] MEDS: ASPIRIN 81 MG EC TABLET PO SCH (08:39)
[2017-12-21 11:04] VITALS: BP 144/87
[2017-12-21 15:01] LABS: HEMATOCRIT 38.6 % (36-46); HEMOGLOBIN 12.4 g/dL (12.0-16.0); MEAN CORPUSCULAR HEMOGLOBIN 28.9 pg (26.0-34.0); MEAN CORPUSCULAR HGB CONC 32.2 G/dL (31.0-37.0); MEAN CORPUSCULAR VOLUME 90 fL (80-100); PLATELET COUNT (AUTO) 326 K/uL (150-450); RED BLOOD CELL COUNT(AUTO) 4.31 MIL/uL (4.00-5.20); RED CELL DISTRIBUTION WIDTH 15.7 % (11.5-14.5)
[2017-12-21 15:23] LABS: BAND NEUTROPHILS % (MANUAL) 5 % (0-5); LYMPHOCYTES % (MANUAL) 6 % (22-44); MONOCYTES % (MANUAL) 3 % (2-9); SEGMENTED NEUTROPHILS % 86 % (40-70)
[2017-12-21 17:21] VITALS: BP 111/64
[2017-12-21 18:19] LABS: AMPHET/METH SCREEN,URINE NEGATIVE (NEGATIVE); BARBITURATE SCREEN, URINE NEGATIVE (NEGATIVE); BENZODIAZEPINES SCREEN,URINE NEGATIVE (NEGATIVE); CANNABINOID SCREEN,URINE NEGATIVE (NEGATIVE); COCAINE SCREEN,URINE NEGATIVE (NEGATIVE); METHADONE SCREEN, URINE NEGATIVE (NEGATIVE); OPIATE SCREEN,URINE NEGATIVE (NEGATIVE); PHENCYCLIDINE SCREEN,URINE NEGATIVE (NEGATIVE)
[2017-12-21 19:11] LABS: APPEARANCE,URINE CLOUDY (CLEAR); BILIRUBIN,URINE NEGATIVE (NEGATIVE); GLUCOSE, URINE (UA) NEGATIVE (NEGATIVE); KETONES,URINE NEGATIVE (NEGATIVE); LEUKOCYTE ESTERASE ,URINE NEGATIVE (NEGATIVE); NITRATE,URINE NEGATIVE (NEGATIVE); OCCULT BLOOD,URINE NEGATIVE (NEGATIVE); PROTEIN,URINE NEGATIVE (NEGATIVE); UROBILINOGEN,URINE 0.2 mg/dL (<=1.0)
[2017-12-21 19:19] VITALS: BP 128/76
[2017-12-21] MEDS: SIMVASTATIN 20 MG TABLET PO SCH (21:14)
[2017-12-21 23:23] VITALS: BP 100/61
[2017-12-22] MEDS: MethylPREDNISolone SOD SUCC 125 MG/2 ML VIAL IVP SCH ×3 (00:29→12:00)
[2017-12-22] MEDS: HEPARIN SODIUM,PORCINE 5,000 UNITS/ML VIAL SQ SCH ×3 (00:29→17:01)
[2017-12-22] MEDS: ALBUTEROL SULFATE 2.5 MG/0.5 ML NEB SOLUTION NEB SCH ×4 (01:27→21:07)
[2017-12-22] MEDS: IPRATROPIUM BROMIDE 0.5 MG/2.5 ML NEB SOLUTION NEB SCH ×4 (01:27→21:07)
[2017-12-22 04:17] VITALS: BP 126/68
[2017-12-22] MEDS: HYDROCODONE/ACETAMINOPHEN 5-325 MG TABLET PO PRN (04:23)
[2017-12-22 06:29] LABS: BASOPHILS % (AUTO) 0.1 % (0.0-2.0); EOSINOPHILS % (AUTO) 0 % (1.0-6.0); HEMATOCRIT 40.1 % (36-46); HEMOGLOBIN 12.9 g/dL (12.0-16.0); LYMPHOCYTES # (AUTO) 0.7 K/uL (1.0-4.8); LYMPHOCYTES % (AUTO) 2.7 % (22.0-44.0); MEAN CORPUSCULAR HEMOGLOBIN 29.2 pg (26.0-34.0); MEAN CORPUSCULAR HGB CONC 32.2 G/dL (31.0-37.0); MEAN CORPUSCULAR VOLUME 91 fL (80-100); MONOCYTES # (AUTO) 0.8 K/uL (0.1-1.0); MONOCYTES % (AUTO) 3.1 % (2.0-9.0); NEUTROPHILS # (AUTO) 25.3 K/uL (1.8-7.7); PLATELET COUNT (AUTO) 325 K/uL (150-450); RED BLOOD CELL COUNT(AUTO) 4.43 MIL/uL (4.00-5.20)
[2017-12-22 06:47] LABS: NEUTROPHILS % (AUTO) 94.1 % (40.0-70.0)
[2017-12-22 07:12] LABS: ALANINE AMINOTRANSFERASE 37 U/L (12-78); ALBUMIN 2.8 g/dL (3.4-5.0); ALKALINE PHOSPHATASE 70 U/L (46-116); ANION GAP 3 mmol/L (8-16); ASPARTATE AMINOTRANSFERASE 23 U/L (15-37); BILIRUBIN,TOTAL 0.3 mg/dL (0.1-1.0); CALCIUM, TOTAL 8.9 mg/dL (8.8-10.5); CARBON DIOXIDE 36 mmol/L (22-29); CHLORIDE 97 mmol/L (98-107); CREATININE 0.89 mg/dL (0.60-1.30); GLOMERULAR FILTR. RATE CALC > 60 mL/min (>60); GLUCOSE,RANDOM 255 mg/dL (70-110); POTASSIUM 4.8 mmol/L (3.5-5.1); SODIUM SERUM 136 mmol/L (136-145); TOTAL PROTEIN, SERUM 7.3 g/dL (6.4-8.2); UREA NITROGEN, BLOOD 20 mg/dL (7-18)
[2017-12-22 07:49] VITALS: BP 126/72
[2017-12-22] MEDS: GuaiFENesin SR 600 MG ER TABLET PO SCH ×2 (08:39→21:18)
[2017-12-22] MEDS: ASPIRIN 81 MG EC TABLET PO SCH (08:39)
[2017-12-22] MEDS: LISINOPRIL 10 MG TABLET PO SCH (08:39)
[2017-12-22] MEDS: SPIRONOLACTONE 25 MG TABLET PO SCH (08:39)
[2017-12-22] MEDS: BENZONATATE 100 MG CAPSULE PO SCH ×3 (08:39→21:18)
[2017-12-22] MEDS: GABAPENTIN 300 MG CAPSULE PO SCH ×3 (08:39→21:18)
[2017-12-22] MEDS: CARVEDILOL 25 MG TABLET PO SCH ×2 (08:39→21:18)
[2017-12-22] MEDS: MULTIVITAMINS, THERAPEUTIC TABLET PO SCH (08:39)
[2017-12-22] MEDS: PANTOPRAZOLE SODIUM 40 MG DR TABLET PO SCH (08:39)
[2017-12-22] MEDS: DOCUSATE SODIUM 100 MG CAPSULE PO SCH ×2 (08:39→21:18)
[2017-12-22] MEDS: FUROSEMIDE 40 MG/4 ML VIAL IVP SCH ×2 (08:40→21:20)
[2017-12-22 11:59] VITALS: BP 107/64
[2017-12-22 15:24] VITALS: BP 119/56
[2017-12-22] MEDS: MethylPREDNISolone SOD SUCC 40 MG/ML VIAL IVP SCH (17:01)
[2017-12-22 19:35] VITALS: BP 116/57
[2017-12-22] MEDS: SIMVASTATIN 20 MG TABLET PO SCH (21:18)
[2017-12-23 00:19] VITALS: BP 138/72
[2017-12-23] MEDS: HEPARIN SODIUM,PORCINE 5,000 UNITS/ML VIAL SQ SCH ×3 (00:43→16:02)
[2017-12-23] MEDS: MethylPREDNISolone SOD SUCC 40 MG/ML VIAL IVP SCH ×2 (00:44→07:51)
[2017-12-23] MEDS: ALBUTEROL SULFATE 2.5 MG/0.5 ML NEB SOLUTION NEB SCH ×4 (02:06→19:27)
[2017-12-23] MEDS: IPRATROPIUM BROMIDE 0.5 MG/2.5 ML NEB SOLUTION NEB SCH ×4 (02:06→19:27)
[2017-12-23 04:02] VITALS: BP 131/79
[2017-12-23] MEDS: HYDROCODONE/ACETAMINOPHEN 5-325 MG TABLET PO PRN (04:07)
[2017-12-23 06:39] LABS: BASOPHILS % (AUTO) 0.2 % (0.0-2.0); EOSINOPHILS % (AUTO) 0 % (1.0-6.0); HEMATOCRIT 40.2 % (36-46); HEMOGLOBIN 12.9 g/dL (12.0-16.0); LYMPHOCYTES # (AUTO) 0.7 K/uL (1.0-4.8); LYMPHOCYTES % (AUTO) 3.3 % (22.0-44.0); MEAN CORPUSCULAR HEMOGLOBIN 28.8 pg (26.0-34.0); MEAN CORPUSCULAR HGB CONC 32.1 G/dL (31.0-37.0); MEAN CORPUSCULAR VOLUME 90 fL (80-100); MONOCYTES % (AUTO) 4.6 % (2.0-9.0); NEUTROPHILS # (AUTO) 20.8 K/uL (1.8-7.7); PLATELET COUNT (AUTO) 341 K/uL (150-450); RED BLOOD CELL COUNT(AUTO) 4.48 MIL/uL (4.00-5.20); RED CELL DISTRIBUTION WIDTH 15.6 % (11.5-14.5)
[2017-12-23 06:51] LABS: NEUTROPHILS % (AUTO) 91.9 % (40.0-70.0)
[2017-12-23 06:52] LABS: ANION GAP 2 mmol/L (8-16); CALCIUM, TOTAL 8.9 mg/dL (8.8-10.5); CARBON DIOXIDE 40 mmol/L (22-29); CHLORIDE 94 mmol/L (98-107); CREATININE 0.86 mg/dL (0.60-1.30); GLOMERULAR FILTR. RATE CALC > 60 mL/min (>60); GLUCOSE,RANDOM 259 mg/dL (70-110); POTASSIUM 4.7 mmol/L (3.5-5.1); SODIUM SERUM 136 mmol/L (136-145); UREA NITROGEN, BLOOD 24 mg/dL (7-18)
[2017-12-23 07:07] VITALS: BP 134/80
[2017-12-23] MEDS: FUROSEMIDE 40 MG/4 ML VIAL IVP SCH ×2 (07:49→20:35)
[2017-12-23] MEDS: MULTIVITAMINS, THERAPEUTIC TABLET PO SCH (07:49)
[2017-12-23] MEDS: PANTOPRAZOLE SODIUM 40 MG DR TABLET PO SCH (07:49)
[2017-12-23] MEDS: ASPIRIN 81 MG EC TABLET PO SCH (07:49)
[2017-12-23] MEDS: GuaiFENesin SR 600 MG ER TABLET PO SCH ×2 (07:49→20:34)
[2017-12-23] MEDS: DOCUSATE SODIUM 100 MG CAPSULE PO SCH ×3 (07:50→20:44)
[2017-12-23] MEDS: BENZONATATE 100 MG CAPSULE PO SCH ×3 (07:50→20:34)
[2017-12-23] MEDS: GABAPENTIN 300 MG CAPSULE PO SCH ×3 (07:50→20:34)
[2017-12-23] MEDS: LISINOPRIL 10 MG TABLET PO SCH (07:51)
[2017-12-23] MEDS: SPIRONOLACTONE 25 MG TABLET PO SCH (07:51)
[2017-12-23] MEDS: CARVEDILOL 25 MG TABLET PO SCH ×2 (07:51→20:34)
[2017-12-23 11:48] LABS: GLUCOMETER DEV NAME(LOC) 5N 1P; GLUCOSE,POINT OF CARE 520 MG/DL (70-110)
[2017-12-23 11:48] LABS: GLUCOMETER DEV NAME(LOC) 5S 1M; GLUCOSE,POINT OF CARE 509 MG/DL (70-110)
[2017-12-23 11:51] VITALS: BP 137/65
[2017-12-23] MEDS ORDERED: DEXTROSE 50%-WATER 25 GM/50 ML SYRINGE IVP PRN (12:15)
[2017-12-23] MEDS ORDERED: INSULIN LISPRO 100 UNITS/ML SQ ONE ×2 (12:30→14:00)
[2017-12-23 15:42] VITALS: BP 119/60
[2017-12-23 17:28] LABS: GLUCOMETER DEV NAME(LOC) 5N 1P; GLUCOSE,POINT OF CARE 308 MG/DL (70-110)
[2017-12-23] MEDS: INSULIN LISPRO 100 UNITS/ML SQ PRN ×2 (17:43→21:22)
[2017-12-23 19:53] VITALS: BP 115/70
[2017-12-23] MEDS: SIMVASTATIN 20 MG TABLET PO SCH (20:35)
[2017-12-24 01:02] VITALS: BP 121/60
[2017-12-24] MEDS: ALBUTEROL SULFATE 2.5 MG/0.5 ML NEB SOLUTION NEB SCH ×2 (01:56→07:14)
[2017-12-24] MEDS: IPRATROPIUM BROMIDE 0.5 MG/2.5 ML NEB SOLUTION NEB SCH ×2 (01:56→07:14)
[2017-12-24 03:47] LABS: GLUCOMETER DEV NAME(LOC) 5S 1M; GLUCOSE,POINT OF CARE 149 MG/DL (70-110)
[2017-12-24 03:47] LABS: GLUCOMETER DEV NAME(LOC) 5S 1M; GLUCOSE,POINT OF CARE 490 MG/DL (70-110)
[2017-12-24 04:53] VITALS: BP 110/72
[2017-12-24 06:53] LABS: BASOPHILS % (AUTO) 0.1 % (0.0-2.0); EOSINOPHILS % (AUTO) 0.2 % (1.0-6.0); HEMATOCRIT 42.5 % (36-46); LYMPHOCYTES # (AUTO) 2.6 K/uL (1.0-4.8); LYMPHOCYTES % (AUTO) 16.9 % (22.0-44.0); MEAN CORPUSCULAR HEMOGLOBIN 29.6 pg (26.0-34.0); MEAN CORPUSCULAR HGB CONC 32.9 G/dL (31.0-37.0); MEAN CORPUSCULAR VOLUME 90 fL (80-100); MONOCYTES # (AUTO) 1.3 K/uL (0.1-1.0); MONOCYTES % (AUTO) 8.2 % (2.0-9.0); NEUTROPHILS # (AUTO) 11.6 K/uL (1.8-7.7); NEUTROPHILS % (AUTO) 74.6 % (40.0-70.0); PLATELET COUNT (AUTO) 312 K/uL (150-450); RED BLOOD CELL COUNT(AUTO) 4.73 MIL/uL (4.00-5.20); RED CELL DISTRIBUTION WIDTH 15.7 % (11.5-14.5)
[2017-12-24 07:17] LABS: ALANINE AMINOTRANSFERASE 56 U/L (12-78); ALBUMIN 2.7 g/dL (3.4-5.0); ALKALINE PHOSPHATASE 52 U/L (46-116); ANION GAP 1 mmol/L (8-16); ASPARTATE AMINOTRANSFERASE 41 U/L (15-37); BILIRUBIN,TOTAL 0.3 mg/dL (0.1-1.0); CALCIUM, TOTAL 8.8 mg/dL (8.8-10.5); CHLORIDE 101 mmol/L (98-107); CREATININE 0.85 mg/dL (0.60-1.30); GLOMERULAR FILTR. RATE CALC > 60 mL/min (>60); GLUCOSE,RANDOM 112 mg/dL (70-110); POTASSIUM 4.1 mmol/L (3.5-5.1); SODIUM SERUM 143 mmol/L (136-145); TOTAL PROTEIN, SERUM 6.7 g/dL (6.4-8.2); UREA NITROGEN, BLOOD 28 mg/dL (7-18)
[2017-12-24 07:19] VITALS: BP 129/59
[2017-12-24 07:31] LABS: HEMOGLOBIN A1C 6.4 % (4.5-6.2)
[2017-12-24 07:42] LABS: CARBON DIOXIDE 41 mmol/L (22-29)
[2017-12-24] MEDS: HEPARIN SODIUM,PORCINE 5,000 UNITS/ML VIAL SQ SCH ×3 (08:00→08:52)
[2017-12-24] MEDS: PANTOPRAZOLE SODIUM 40 MG DR TABLET PO SCH (08:51)
[2017-12-24] MEDS: LISINOPRIL 10 MG TABLET PO SCH (08:51)
[2017-12-24] MEDS: MULTIVITAMINS, THERAPEUTIC TABLET PO SCH (08:51)
[2017-12-24] MEDS: BENZONATATE 100 MG CAPSULE PO SCH (08:51)
[2017-12-24] MEDS: FUROSEMIDE 40 MG/4 ML VIAL IVP SCH (08:52)
[2017-12-24] MEDS: SPIRONOLACTONE 25 MG TABLET PO SCH (08:52)
[2017-12-24] MEDS: ASPIRIN 81 MG EC TABLET PO SCH (08:52)
[2017-12-24] MEDS: GuaiFENesin SR 600 MG ER TABLET PO SCH (08:52)
[2017-12-24] MEDS: GABAPENTIN 300 MG CAPSULE PO SCH (08:52)
[2017-12-24] MEDS: CARVEDILOL 25 MG TABLET PO SCH (08:52)
[2017-12-24] MEDS: DOCUSATE SODIUM 100 MG CAPSULE PO SCH (08:58)
[2017-12-24 12:08] LABS: GLUCOMETER DEV NAME(LOC) 5S 1M; GLUCOSE,POINT OF CARE 119 MG/DL (70-110)
== END 2017-12-24 09:45 | disposition home or self-care (01) | DRG 140 ==
LOC: EMS 12:30 → 5S 15:40
PROVIDERS: ADMIT Internal Medicine; ATTEND Internal Medicine
DX: J44.1 Chronic obstructive pulmonary disease with (acute) exacerbation (principal); I50.23 Acute on chronic systolic (congestive) heart failure; E11.40 Type 2 diabetes mellitus with diabetic neuropathy, unspecified; I42.9 Cardiomyopathy, unspecified; I11.0 Hypertensive heart disease with heart failure; E11.649 Type 2 diabetes mellitus with hypoglycemia without coma; E78.5 Hyperlipidemia, unspecified; F15.10 Other stimulant abuse, uncomplicated; I25.10 Atherosclerotic heart disease of native coronary artery without angina pectoris; F41.9 Anxiety disorder, unspecified; J45.909 Unspecified asthma, uncomplicated; G89.29 Other chronic pain; E11.65 Type 2 diabetes mellitus with hyperglycemia; E66.9 Obesity, unspecified; D72.829 Elevated white blood cell count, unspecified; Z68.34 Body mass index [BMI] 34.0-34.9, adult; Z79.82 Long term (current) use of aspirin; Z87.891 Personal history of nicotine dependence; Z98.51 Tubal ligation status; Z95.0 Presence of cardiac pacemaker
CPT/HCPCS: 82962; 83036; 93005; 94060; 94640; 94644; J1644; J1815; J1940; J2920; J2930